=== PATIENT | male | born 1990 | race Caucasian/White ===

== ENCOUNTER → 2021-12-04 | Day surgery (SDC) | payer OTHER ==
[~2021-12-04] MED LIST: Dexamethasone 4 MG/ML SDV ONE; Ketamine 200 MG/20 ML MDV ONE; Ketorolac 30 MG/ML SDV ONE; Lactated Ringers 1,000 ML IV SCH; Lidocaine 1% with EPINEPHrine 1:100,000 20 ML MDV INJECT ONE; Lidocaine 2% 20 ML MDV ONE; Midazolam 1 MG/ML 2 ML SDV ONE; Ondansetron 4 MG/2 ML SDV ONE; Propofol 200 MG/20 ML SDV ONE; Succinylcholine 200 MG/10 ML MDV ONE; fentaNYL 50 MCG/ML SDV ONE
== END ==
LOC: CC.SDS 10:09
PROVIDERS: ATTEND Surgery
DX: L05.91 Pilonidal cyst without abscess (principal); I10 Essential (primary) hypertension; J45.909 Unspecified asthma, uncomplicated; E78.5 Hyperlipidemia, unspecified; Z88.1 Allergy status to other antibiotic agents; Z20.822 Contact with and (suspected) exposure to COVID-19; Z79.899 Other long term (current) drug therapy
CPT/HCPCS: 00300; J0330; J1100; J1885; J2250; J2405; J2704; J3010; J7120; U0002

== ENCOUNTER 2023-10-25 11:55 | Emergency (ER) | payer OTHER ==
[2023-10-25 12:46] LABS: BASOPHILS ABSOLUTE AUTO 0.04 10^3/uL (0.00-0.50); BASOPHILS PERCENT AUTO 0.5 % (0-1); EOSINOPHILS ABSOLUTE AUTO 0.12 10^3/uL (0.00-1.50); EOSINOPHILS PERCENT AUTO 1.5 % (0-6); HEMATOCRIT 43.7 % (42.0-52.0); HEMOGLOBIN 14.5 g/dL (14.0-18.0); IMMATURE GRAN ABSOLUTE AUTO 0.07 10^3/uL (0.00-0.49); IMMATURE GRAN PERCENT AUTO 0.9 % (0.0-4.9); LYMPHOCYTES ABSOLUTE AUTO 1.57 10^3/uL (0.60-5.00); LYMPHOCYTES PERCENT AUTO 19.2 % (24-44); MEAN CORPUSCULAR HEMOGLOBIN 25.9 pg (27.0-32.0); MEAN CORPUSCULAR HGB CONC 33.2 g/dL (32.0-36.0); MONOCYTES ABSOLUTE AUTO 0.76 10^3/uL (0.00-1.50); MONOCYTES PERCENT AUTO 9.3 % (0-10); NEUTROPHILS ABSOLUTE AUTO 5.63 x10^3/uL (1.80-8.00); NEUTROPHILS PERCENT AUTO 68.6 % (41-71); PLATELET COUNT,PLT 247 10^3/uL (150-400); WHITE BLOOD CELL COUNT,WBC 8.2 10^3/uL (4.0-11.0)
[2023-10-25 13:02] LABS: CREATINE KINASE,CK 132 U/L (35-232); MAGNESIUM 1.4 mg/dL (1.8-2.4)
[2023-10-25 13:02] LABS: APPEARANCE,URINE CLEAR (CLEAR); BILIRUBIN,URINE NEGATIVE (NEGATIVE); COLOR,URINE YELLOW (YELLOW); GLUCOSE,URINE NEGATIVE (NEGATIVE); KETONES,URINE 40 mg/dL (NEGATIVE); LEUKOCYTE ESTERASE,URINE NEGATIVE (NEGATIVE); NITRITE,URINE NEGATIVE (NEGATIVE); OCCULT BLOOD,URINE NEGATIVE (NEGATIVE); PH,URINE 8.5 (4.5-8.0); PROTEIN,URINE TRACE mg/dL (NEGATIVE); UROBILINOGEN,URINE 0.2 EU/dL (0.2-1.0)
[2023-10-25 13:03] LABS: ALBUMIN 4.1 g/dL (3.4-5.0); BILIRUBIN TOTAL 0.6 mg/dL (0.0-1.0); CALCIUM 9.7 mg/dL (8.4-10.1); CREATININE 1.2 mg/dL (0.7-1.3); EST CRCL DRUG DOSING (CG) 101.8 mL/min; POTASSIUM,K 4.4 mEq/L (3.5-5.0); PROTEIN TOTAL,TP 8.4 g/dL (6.4-8.2)
[2023-10-25 13:06] LABS: BACTERIA,URINE NOT SEEN /HPF (NOT SEEN); RBC,URINE NOT SEEN /HPF (0-5); SQUAMOUS EPITHELIAL CELLS,UR OCCASIONAL /HPF (NOT SEEN); WBC,URINE NOT SEEN /HPF (0-5)
[2023-10-25] MEDS: Sodium Chloride 0.9% 1,000 ML IV ONE (13:08)
[2023-10-25] MEDS: Magnesium Sulfate/Water 2 GM in Premix Bag 1 BAG IV ONE (13:34)
== END 2023-10-25 15:08 | disposition home or self-care (01) ==
LOC: CC.ED 11:55
DX: E86.0 Dehydration (principal); E83.42 Hypomagnesemia; Z88.1 Allergy status to other antibiotic agents
CPT/HCPCS: 36415; 70450; 80053; 81001; 82550; 83735; 84484; 85025; 93005; 96365; 96366; 99285; J3475; J7030; 93010; 99284

== ENCOUNTER 2024-04-03 19:08 | Emergency (ER) | payer OTHER ==
[2024-04-03] MEDS: Sodium Chloride 0.9% 1,000 ML IV ONE (19:20)
[2024-04-03] MEDS: Ondansetron 4 MG/2 ML SDV IVPUSH PRN (19:27)
[2024-04-03 19:42] LABS: BASOPHILS ABSOLUTE AUTO 0.05 10^3/uL (0.00-0.50); BASOPHILS PERCENT AUTO 0.5 % (0-1); EOSINOPHILS ABSOLUTE AUTO 0.14 10^3/uL (0.00-1.50); EOSINOPHILS PERCENT AUTO 1.5 % (0-6); HEMATOCRIT 42.9 % (42.0-52.0); HEMOGLOBIN 14.4 g/dL (14.0-18.0); IMMATURE GRAN ABSOLUTE AUTO 0.01 10^3/uL (0.00-0.49); IMMATURE GRAN PERCENT AUTO 0.1 % (0.0-4.9); LYMPHOCYTES ABSOLUTE AUTO 2.11 10^3/uL (0.60-5.00); LYMPHOCYTES PERCENT AUTO 22.5 % (24-44); MEAN CORPUSCULAR HEMOGLOBIN 26.2 pg (27.0-32.0); MEAN CORPUSCULAR HGB CONC 33.6 g/dL (32.0-36.0); MEAN CORPUSCULAR VOLUME 78.1 fL (83.0-97.0); MONOCYTES ABSOLUTE AUTO 0.71 10^3/uL (0.00-1.50); MONOCYTES PERCENT AUTO 7.6 % (0-10); NEUTROPHILS ABSOLUTE AUTO 6.36 x10^3/uL (1.80-8.00); NEUTROPHILS PERCENT AUTO 67.8 % (41-71); PLATELET COUNT,PLT 234 10^3/uL (150-400); RED BLOOD CELL COUNT 5.49 x10^6/uL (4.50-6.00); WHITE BLOOD CELL COUNT,WBC 9.4 10^3/uL (4.0-11.0)
[2024-04-03 19:58] LABS: ALANINE AMINOTRANSFERASE,ALT 107 U/L (12-78); ALBUMIN 4.2 g/dL (3.4-5.0); ALKALINE PHOSPHATASE 77 U/L (46-116); ASPARTATE AMNIOTRANSFERASE,AST 38 U/L (15-37); BILIRUBIN TOTAL 1.1 mg/dL (0.0-1.0); BLOOD UREA NITROGEN,BUN 11 mg/dL (7-18); CALCIUM 9.6 mg/dL (8.4-10.1); CARBON DIOXIDE,CO2 22 mmol/L (21-32); CHLORIDE,CL 97 mEq/L (98-106); CREATININE 1.3 mg/dL (0.7-1.3); EST CRCL DRUG DOSING (CG) 93.09 mL/min; GLUCOSE RANDOM 126 mg/dL (75-99); MAGNESIUM 1.5 mg/dL (1.8-2.4); POTASSIUM,K 4.2 mEq/L (3.5-5.0); PROTEIN TOTAL,TP 8.2 g/dL (6.4-8.2); SODIUM,NA 139 mEq/L (136-145)
[2024-04-03 19:59] LABS: C-REACTIVE PROTEIN < 0.50 mg/dL (<=0.50); ESTIMATED GFR 74 mL/min (>=60)
[2024-04-03] MEDS: Magnesium Sulfate/Water Premix 2 GM in Premix Bag 1 BAG IV ONE (20:21)
[2024-04-03] MEDS: LORazepam 2 MG/ML SDV IVPUSH ONE (20:29)
[2024-04-03] MEDS: Sodium Chloride 0.9% 500 ML IV SCH (20:50)
== END 2024-04-03 22:25 | disposition home or self-care (01) ==
LOC: CC.ED 19:08
DX: E83.42 Hypomagnesemia (principal); E86.0 Dehydration; Z88.1 Allergy status to other antibiotic agents
CPT/HCPCS: 36415; 70450; 80053; 83735; 84484; 85025; 86140; 93005; 96361; 96365; 96366; 96375; 99284; 99284-25; J2060; J2405; J3475; J7030; J7040